=== PATIENT | male | born 1940 | race African-American/Black ===

== ENCOUNTER 2020-05-26 15:26 | Emergency (ER) | payer SELFPAY ==
[~2020-05-26] VITALS: Ht 160 cm; Wt 68.0 kg
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
--- NOTE | 2020-05-26 17:00 | NUR ---
DISCHARGED HOME WITH INSTRUCTION AND RX FOLLOW UP WITH PMD
--- NOTE | 2020-05-26 17:04 | Diagnostic Imaging Report ---
EXAM: CT Head Without Intravenous Contrast CLINICAL HISTORY: TRAUMA TECHNIQUE: Axial computed tomography images of the head/brain without intravenous contrast. CTDI is 53.4 mGy and DLP is 1018.8 mGy-cm. One or more of the following dose reduction techniques were used: automated exposure control, adjustment of the mA and/or kV according to patient size, use of iterative reconstruction technique. COMPARISON: None FINDINGS: Brain: No acute infarct or hemorrhage identified. No extra-axial fluid collection. No mass effect or midline shift. Scattered areas of hypoattenuation in the supratentorial white matter likely represent chronic small vessel ischemic changes. Ventricles and sulci: Prominence of the ventricles and sulci is likely secondary to cerebral volume loss. Bones: Normal. No bony lesion or acute fracture. Subcutaneous tissues: Normal. Sinuses: Normal. No air-fluid levels or mucosal thickening. Mastoid air cells: Normal. Orbits: Bilateral lens implants. Other: Atherosclerotic calcifications in the intracranial vasculature. Cerumen in the external auditory canals. IMPRESSION: 1. No acute intracranial abnormality. 2. Mild chronic small vessel ischemic changes and cerebral volume loss.
--- NOTE | 2020-05-26 17:10 | Diagnostic Imaging Report ---
EXAM: CT Chest Without Intravenous Contrast CLINICAL HISTORY: TRAUMA TECHNIQUE: Axial computed tomography images of the chest without intravenous contrast. CTDI is 4.7 mGy and DLP is 293.6 mGy-cm. One or more of the following dose reduction techniques were used: automated exposure control, adjustment of the mA and/or kV according to patient size, use of iterative reconstruction technique. COMPARISON: None FINDINGS: Lungs: Small calcified granuloma in the right upper lobe. No focal consolidation. Pleural space: Unremarkable. No pneumothorax. No significant effusion. Heart: Median sternotomy and CABG changes. No significant pericardial effusion. Mediastinum: Small hiatal hernia. Small amount of fluid in the esophagus. Bones/joints: Unremarkable. No acute fracture. No dislocation. Soft tissues: Mild bilateral gynecomastia. Vasculature: Unremarkable. No thoracic aortic aneurysm. Lymph nodes: Unremarkable. No enlarged lymph nodes. IMPRESSION: 1. No acute traumatic abnormality in the chest. 2. Small hiatal hernia. Small amount of fluid in the esophagus. EXAM: CT Abdomen and Pelvis Without Intravenous Contrast CLINICAL HISTORY: TRAUMA TECHNIQUE: Axial computed tomography images of the abdomen and pelvis without intravenous contrast. CTDI is 4.7 mGy and DLP is 293.6 mGy-cm. One or more of the following dose reduction techniques were used: automated exposure control, adjustment of the mA and/or kV according to patient size, use of iterative reconstruction technique. COMPARISON: None FINDINGS: ABDOMEN: Liver: Calcifications in the right liver. Gallbladder and bile ducts: Unremarkable. No calcified stones. No ductal dilation. Pancreas: Unremarkable. No ductal dilation. Spleen: Unremarkable. No splenomegaly. Adrenals: Unremarkable. No mass. Kidneys and ureters: Nonspecific mild bilateral perinephric fat stranding. No hydronephrosis or stone. Stomach and bowel: Diverticulosis without evidence of diverticulitis. No bowel obstruction. PELVIS: Appendix: Normal appendix. Bladder: Multiple bladder diverticula. Nonspecific mild bladder wall thickening. Please correlate with urinalysis. No stones. Reproductive: Mild prostatomegaly. ABDOMEN and PELVIS: Intraperitoneal space: Unremarkable. No free air. No significant fluid collection. Bones/joints: Grade 1 anterolisthesis of L4 on L5. Degenerative changes of the spine. No acute fracture. No dislocation. Soft tissues: Unremarkable. Vasculature: Atherosclerotic changes of the vasculature. No aortic aneurysm. Lymph nodes: Mildly prominent mesenteric lymph nodes are nonspecific but may be reactive.. IMPRESSION: 1. No acute traumatic abnormality identified in the abdomen or pelvis. 2. Multiple bladder diverticula. Nonspecific mild bladder wall thickening. Please correlate with urinalysis.
--- NOTE | 2020-05-26 17:18 | Diagnostic Imaging Report ---
EXAM: CT Cervical Spine Without Intravenous Contrast CLINICAL HISTORY: TRAUMA TECHNIQUE: Axial computed tomography images of the cervical spine without intravenous contrast. CTDI is 20.2 mGy and DLP is 450.4 mGy-cm. One or more of the following dose reduction techniques were used: automated exposure control, adjustment of the mA and/or kV according to patient size, use of iterative reconstruction technique. COMPARISON: None FINDINGS: Bones: Normal alignment. No acute fracture or bony lesion. Disc spaces: No subluxation. Degenerative changes of the spine. Soft tissues: Normal. Other: Cerumen in the external auditory canals. Atherosclerotic changes of the vasculature. IMPRESSION: No acute traumatic abnormality.
--- NOTE | 2020-05-26 17:47 | Diagnostic Imaging Report ---
EXAM: XR Right Knee, 3 Views CLINICAL HISTORY: TRAUMA TECHNIQUE: Three views of the right knee. COMPARISON: No relevant prior studies available. FINDINGS: Bones/joints: Unremarkable. No acute fracture. No dislocation. Soft tissues: Unremarkable. Vasculature: Atherosclerotic vascular disease. IMPRESSION: 1. No acute traumatic injury. 2. Atherosclerotic vascular disease. 3. Otherwise unremarkable study.
[2020-05-26 17:48] VITALS: BP 124/80
--- NOTE | 2020-05-26 17:48 | Diagnostic Imaging Report ---
EXAM: XR Right Femur, 2 Views CLINICAL HISTORY: TRAUMA TECHNIQUE: Frontal and lateral views of the right femur. COMPARISON: No relevant prior studies available. FINDINGS: Bones/joints: Unremarkable. No acute fracture. No dislocation. Soft tissues: Unremarkable. Vasculature: Atherosclerotic vascular disease. IMPRESSION: 1. No acute traumatic injury. 2. Atherosclerotic vascular disease. 3. Otherwise unremarkable study.
[2020-05-26 17:51] VITALS: BP 124/80
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
[2020-05-26] MEDS ORDERED: ROBAXIN-500MG ORAL (17:57)
[2020-05-26] MEDS ORDERED: LIDODERM700 M1 TOPIC (17:57)
[2020-05-26] MEDS ORDERED: TYLENOL EXTRA500 MG ORAL (17:57)
== END 2020-05-26 17:55 | disposition home or self-care (01) ==
LOC: EMR 16:15
DX: S00.93XA Contusion of unspecified part of head, initial encounter (principal); S80.01XA Contusion of right knee, initial encounter; S16.1XXA Strain of muscle, fascia and tendon at neck level, initial encounter; S39.012A Strain of muscle, fascia and tendon of lower back, initial encounter; I10 Essential (primary) hypertension; F03.90 Unspecified dementia, unspecified severity, without behavioral disturbance, psychotic disturbance, mood disturbance, and anxiety; V43.62XA Car passenger injured in collision with other type car in traffic accident, initial encounter; Y92.411 Interstate highway as the place of occurrence of the external cause
CPT/HCPCS: 70450; 71250; 72125; 74176; 99284